=== PATIENT | female | born 1945 | race Caucasian/White ===

== ENCOUNTER 2017-02-02 13:24 | Emergency (ER) | payer OTHER ==
--- NOTE | 2017-02-02 14:18 | ERNOTE ---
Headache ER HPI - General Presenting Symptoms: headache Time Seen by Provider: 02/02/17 14:00 Source: patient Exam Limitations: no limitations - Immun/Allergies/Home Medications Immunizations: IMMUNIZATION HX Immunizations Up to Date Yes History of Influenza Vaccine Yes Hx Pneumococcal Vaccination Yes Allergies/Adverse Reactions: Allergies Iodinated Contrast- Oral and IV Dye Allergy (Verified 02/02/17 13:39) Home Medications: HOME MEDICATIONS Carbamazepine [Carbamazepine ER] 100 mg PO BID #60 cpmp.12hr 02/02/17 [Last Taken Unknown] Furosemide [Lasix] 40 mg PO DAILY 02/02/17 [Last Taken Unknown] Potassium Chloride [Klor-Con] 20 meq PO DAILY 02/02/17 [Last Taken Unknown] - History of Present Illness Narrative: Patient started to have right sided headache at 01:00. She states that she never gets headaches, describes this one as intermittent, sharp pain, lasting a few seconds, involved the right temporal area and was severe. Since taking ibuprofen (200mg) the pain is less severe and limited to the area in front of her left ear. Between pain episodes the pain is resolved completely. She has a history of MS (primary progressive) for 19 years. She is currently on no medications for that. Her main symptoms are tremors (hand) Review of Systems - Review of Systems Constitutional: Absent: recent illness, fever EYE: Absent: vision changes ENT: Absent: nose congestion, sore throat Respiratory: Absent: shortness of breath, cough Cardiology: Absent: chest pain Gastrointestinal/Abdominal: Absent: nausea, vomiting Genitourinary: Present: no symptoms reported Musculoskeletal: Absent: neck pain Neurological: Present: See HPI, headache. Absent: weakness, numbness - Patient's Past Medical History Patient History - Medical: Other - MS Patient History - Cardiac/Respiratory: CHF Patient History - Cancer: No Hx of Cancer Patient History - Surgical Procedures: Appendectomy, Hysterectomy Patient History - Other: None LMP (females 10-50): Menopausal - Social History Living Situations: home Abuse History: No History of abuse Psych History: No pertinent hx Smoking Status: Former smoker Alcohol Use: none Drug Use: none - Immunizations Immunizations Up to Date: Yes Hx Pneumococcal Vaccination: Yes History of Influenza Vaccine: Yes Physical Exam - Physical Exam General Appearance: Present: wd/wn, alert, no apparent distress Head Exam: Present: normal inspection, no evidence of injury. 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 - Vital Signs Patient's Vital Signs:: I have reviewed the patient's vital signs. Vital Signs: Vital Signs 02/02/17 13:40 Temperature 37.4 C Pulse Rate 88 Respiratory 18 Rate Blood Pressure 162/79 O2 Sat by Pulse 98 Oximetry - Progress/Reassessment Chief Complaint: Headache Progress Note-Subjective: 02/02/17 15:31 call to [facility] 02/02/17 15:34 discussed with colin Flannery to start patient on tegretol 100mg bid 02/02/17 15:41 discussed plan with patient and Departure Clinical Impression: Trigeminal neuralgia of right side of face - Departure Disposition: Home self-care Condition: Good Instructions: Trigeminal Neuralgia Additional Instructions: follow up with the neurology office next week as scheduled Referrals: Radha Donahue ARNP [Primary Care Provider] - Prescriptions: Carbamazepine [Carbamazepine ER] 100 mg PO BID #60 cpmp.12hr
[2017-02-02 14:33] LABS: Hematocrit 39.6 % (37.0-47.0); Hemoglobin 13.6 gm/dL (12.5-16.0); Mean Cell Volume 83.9 fl (78-100); Mean Corpuscular Hemoglobin 28.8 pg (27-31); Mean Corpuscular Hgb Conc 34.3 g/dl (32-36); Mean Platelet Volume 9.8 fl (6.0-9.5); Neutrophil # 2.7 K/mm3 (1.3-6.0); Neutrophil % 48.2 % (42-75.0); Platelet Count 324 K/mm3 (150-450); Red Blood Count 4.72 M/mm3 (4.2-5.4); Red Cell Distribution Width 13.2 % (11.5-14.0); White Blood Count 5.6 K/mm3 (4.0-10.5)
[2017-02-02 14:41] LABS: Anion Gap 14.2 mmol/L (6.8-13.8); BUN/Creatinine Ratio 27.6 (9.0-21.6); Bilirubin, Total 0.4 mg/dL (0.0-1.1); Ca. Corrected For Albumin 8.9 mg/dL (8.4-10.2); Calcium * 9.2 mg/dL (7.9-10.9); Carbon Dioxide 28.4 mmol/L (24-32.6); Potassium 3.6 mmol/L (3.4-4.6); Total Protein 7.4 gm/dL (6.2-8.2)
[2017-02-02 16:03] VITALS: BP 151/76
== END 2017-02-02 15:40 | disposition home or self-care (01) ==
LOC: ER 13:24
DX: G50.0 Trigeminal neuralgia (principal); G35 Multiple sclerosis; I50.9 Heart failure, unspecified